=== PATIENT | female | born 1990 | race Caucasian/White ===

== ENCOUNTER 2016-10-31 06:57 | Emergency (ER) | payer OTHER ==
[~2016-10-31] VITALS: Ht 167.6 cm; Wt 70.3 kg
[2016-10-31] MEDS ORDERED: NUVARING VAGIN1 EACH VG (07:36)
[2016-10-31] MEDS ORDERED: AMITRIPTYLINE H25 M2 PO (07:36)
--- NOTE | 2016-10-31 07:53 | ED GI/GU/ABDOMINAL COMPLAINT ---
History of Present Illness General Chief Complaint: General Adult Stated Complaint: RECTAL BLEEDING PER PT Source: patient, old records Exam Limitations: no limitations Vital Signs & Intake/Output Vital Signs & Intake/Output Vital Signs Date Time Temp Pulse Resp B/P B/P Pulse O2 O2 Flow FiO2 Mean Ox Delivery Rate 10/31 1145 97.0 78 17 114/62 97 Room Air / 0915 97.3 88 17 112/66 100 Room Air 10/31 0700 98.6 86 18 137/88 98 Room Air Room Air Allergies Coded Allergies: MDX - SULFA (sulfonamide) (SULFA (sulfonamide)) (SWELLINGS 12/31/10) Reconcile Medications Amitriptyline HCl 25 MG TABLET 1 TAB PO QPM MENTAL HEALTH (Reported) Etonogestrel/Ethinyl Estradiol (Nuvaring Vaginal Ring) 0.12 MG -0.015 MG/24 HR VAG.RING 1 EACH VG Q30D CONTROL (Reported) use for 3 weeks, skip for 1 week Hyoscyamine Sulfate (Levsin-Sl) 0.125 MG TAB.SUBL 1-2 TAB SL Q4P PRN abdominal pain Ondansetron (Zofran Odt) 4 MG TAB.RAPDIS 1 TAB SL TID PRN nausea Prednisone 20 MG TABLET 1 TAB PO BID ibs Tramadol HCl (Ultram) 50 MG TABLET 1-2 TAB PO Q6PRN PRN severe pain Triage Note: TRIAGE: 26 Y/O FEMALE PRESENTS WITH PMHX OF IBS. REPORTS 8/10 CRAMPING X36 HOURS. +NAUSEA, DENIES VOMITUS. DENIES STRAINING WITH DEFICATION. "I HAVE AN INCREDIBLE AMOUNT OF GAS. IT STARTED NORMAL DIARRHEA, BUT NOW IT'S JUST GAS AND BRIGHT RED MUCOUSY." DENIES HISTORY OF HEMORRHOIDS. Triage Nurses Notes Reviewed? yes LMP (ages 10-50): unknown ? n Is pt currently ? No Onset: 36 hours Duration: hour(s):, continues in ED, waxing and waning Timing: recent history Quality/Severity: aching, cramping, severe Location: left lower quadrant, right lower quadrant Radiation: no radiation Activities at Onset: none Prior Abdominal Problems: similar symptoms Past Sexual History: Unobtainable at this time Modifying Factors: Worsens With: eating. Associated Symptoms: abdominal pain, diarrhea, loss of appetite, nausea/vomiting HPI: Patient reports history of IBS with 36 hours of nausea lower abdominal cramping frequent stooling now with no stool passing mucous and blood. She denies fever chills chest pain cough shortness of breath headache dysuria rash . Past History Travel History Traveled to [place] past 21 day No Medical History Any Pertinent Medical History? see below for history Gastrointestinal: irritable bowel syndrome Influenza Vaccine: 03/28/11 Tetanus Vaccine: 08/15/11 Surgical History Surgical History: appendectomy Psychosocial History Who do you live with Patient/Self Services at Home None What is your primary language Hungarian Tobacco Use: Never used ETOH Use: occasional use Illicit Drug Use: denies illicit drug use Family History Hx Contributory? No Review of Systems Review of Systems Constitutional: Reports: see HPI, malaise. EENTM: Reports: no symptoms. Respiratory: Reports: no symptoms. Cardiovascular: Reports: no symptoms. GI: Reports: see HPI, abdominal pain, diarrhea, bloody stool, changes in stool. Genitourinary: Reports: no symptoms. Musculoskeletal: Reports: no symptoms. Skin: Reports: no symptoms. Neurological/Psychological: Reports: no symptoms. Hematologic/Endocrine: Reports: no symptoms. Immunologic/Allergic: Reports: no symptoms. All Other Systems: Reviewed and Negative Physical Exam Physical Exam General Appearance: well developed/nourished, alert, awake, anxious, moderate distress Head: atraumatic, normal appearance Eyes: Bilateral: normal appearance, PERRL, EOMI, normal inspection. Ears, Nose, Throat, Mouth: hearing grossly normal, moist mucous membrane Neck: normal inspection, supple, full range of motion, normal alignment Respiratory: normal breath sounds, chest non-tender, no respiratory distress, quiet respiration, lungs clear Cardiovascular: regular rate/rhythm, normal peripheral pulses, norml femoral pulses equa Peripheral Pulses: 4+ carotid (R), 4+ carotid (L) Gastrointestinal: normal bowel sounds, soft, non-tender, no organomegaly Rectal: deferred (patient declines) Back: normal inspection, normal range of motion Extremities: normal range of motion, no ligament instability Neurologic/Psych: no motor/sensory deficits, awake, alert, oriented x 3, normal gait, normal mood/affect, medication manager II-XII nml as tested Skin: intact, normal color, warm/dry Core Measures ACS in differential dx? No Severe Sepsis Present: No Septic Shock Present: No Progress Differential Diagnosis: biliary colic, diverticulitis, ischemic bowel, inflamm bowel dis, pancreatitis Plan of Care: Orders Procedure Date/time Status URINE 10/31 744 Complete URINALYSIS 10/31 744 Complete LIPASE 10/31 744 Complete HIGH SENSITIVITY CRP 10/31 744 Complete WESTERGREN SED RATE 10/31 744 Complete COMPREHENSIVE METABOLIC PANEL 10/31 744 Complete CBC WITHOUT DIFFERENTIAL 10/31 744 Complete Laboratory Tests 10/31/16 0825: Urine Color YEL, Urine Clarity CLEAR, Urine pH 6.5, Ur Specific [place] <= 1.005 , Urine Protein NEG, Urine Ketones NEG, Urine Nitrite NEG, Urine Bilirubin NEG, Urine Urobilinogen 0.2, Ur Leukocyte Esterase NEG, Ur Microscopic EXAM NOT REQUIRED, Urine Hemoglobin NEG, Urine Glucose NEG, Urine Test NEGATIVE 10/31/16 0813: Anion Gap 13, Estimated GFR > 60, BUN/Creatinine Ratio 16.7, Glucose 89, Calcium 9.2, Total Bilirubin 0.4, AST 21, ALT 33, Alkaline Phosphatase 63, C-React Prot High Sens 6.4 H, Total Protein 7.1, Albumin 4.3, Globulin 2.8, Albumin/Globulin Ratio 1.5, Lipase 98, CBC w Diff NO MAN DIFF REQ, RBC 4.30, MCV 88.0, MCH 29.5, RDW 13.6, MPV 8.3, Gran % 69.7, Lymphocytes % 23.1, Monocytes % 5.4, Eosinophils % 1.4, Basophils % 0.4, Absolute Granulocytes 5.5, Absolute Lymphocytes 1.8, Absolute Monocytes 0.4, Absolute Eosinophils 0.1, Absolute Basophils 0, PUBS MCHC 33.6, ESR Westergren 25 H Initial ED EKG: none Departure Departure Time of Disposition: 1146 Disposition: HOME OR SELF CARE Condition: Stable Clinical Impression Primary Impression: IBS (irritable bowel syndrome) Qualifiers: Irritable bowel syndrome type: with diarrhea Qualified Code: K58.0 - Irritable bowel syndrome with diarrhea Referrals: ÁNGEL SANTOS (PCP/Family) AZEB RODRIGUEZ MD Call for GI follow up Departure Forms: Customer Survey General Discharge Information Prescriptions: Current Visit Scripts Ondansetron (Zofran Odt) 1 TAB SL TID PRN nausea #15 TAB Hyoscyamine Sulfate (Levsin-Sl) 1-2 TAB SL Q4P PRN abdominal pain #60 TAB Tramadol HCl (Ultram) 1-2 TAB PO Q6PRN PRN severe pain #30 TAB Prednisone 1 TAB PO BID #10 TAB
[2016-10-31 08:38] LABS: ABSOLUTE BASOPHIL COUNT 0 /CUMM (0.0-0.2); ABSOLUTE EOSINOPHIL COUNT 0.1 /CUMM (0.0-0.7); ABSOLUTE GRANULOCYTE CT 5.5 /CUMM (1.4-6.5); ABSOLUTE LYMPH COUNT 1.8 /CUMM (1.2-3.4); ABSOLUTE MONOCYTE COUNT 0.4 /CUMM (0.10-0.60); BASOPHIL % 0.4 % (0.0-2.0); EOSINOPHIL % 1.4 % (0-5); GRANULOCYTE % 69.7 % (42.2-75.2); HEMATOCRIT 37.8 % (37-47); MEAN CORPUSCULAR HGB 29.5 PG (27.0-31.0); MEAN CORPUSCULAR HGB CONC 33.6 G/DL (33.0-37.0); MEAN PLATELET VOLUME 8.3 FL (7.4-10.4); PLATELET COUNT 314 /CUMM (130-400); RBC DISTRIBUTION WIDTH 13.6 % (11.5-14.5); WHITE BLOOD CELL COUNT 7.9 /CUMM (4.8-10.8)
[2016-10-31 11:45] VITALS: BP 114/62
[2016-10-31] MEDS ORDERED: LEVSIN-SL0.125 MG SL (11:48)
[2016-10-31] MEDS ORDERED: ULTRAM50 M1 PO (11:48)
[2016-10-31] MEDS ORDERED: ZOFRAN ODT4 M1 SL (11:48)
[2016-10-31] MEDS ORDERED: PREDNISONE20 M1 PO (11:49)
== END 2016-10-31 12:10 ==
LOC: ERH 06:57
PROVIDERS: Emergency Medicine
DX: K58.9 Irritable bowel syndrome, unspecified (principal)
CPT/HCPCS: 81003; 81025; 96361; 96374; 96375; 96376; J1720; J2405